=== PATIENT | female | born 1995 | race Caucasian/White ===

== ENCOUNTER 2021-12-15 13:56 | Emergency (ER) | payer SELFPAY ==
[2021-12-15] MEDS ORDERED: Meclizine HCl 25 MG TAB ONE (14:26)
[2021-12-15] MEDS ORDERED: Benzonatate 100 MG CAP ONE (14:26)
[2021-12-15 15:06] LABS: Pregnancy Test - Urine (BHCG) Negative (Negative); Pregu Control Background? CLEAR/WHITE (CLR/WHITE); Pregu Control Bar Appear? YES (CONTROL BAR); Specific Gravity 1.026 (1.002-1.036)
[2021-12-15] MEDS ORDERED: Ibuprofen 600 MG TAB ONE (15:08)
[2021-12-15] MEDS ORDERED: Oseltamivir 75 MG CAP ONE (15:08)
== END 2021-12-15 15:14 | disposition home or self-care (01) ==
LOC: MADERS 13:56
DX: J10.1 Influenza due to other identified influenza virus with other respiratory manifestations (principal); R42 Dizziness and giddiness
CPT/HCPCS: 81025; 87804; 99283